=== PATIENT | female | born 2000 | race Caucasian/White ===

== ENCOUNTER 2019-03-05 11:06 | Emergency (ER) | payer MEDICAID ==
[~2019-03-05] VITALS: Ht 165.1 cm; Wt 53.5 kg
--- NOTE | 2019-03-05 11:13 | NUR ---
PT CAME INTO THE ED COMPLAINING OF SOARTHROAT X 1 WEEK, CONGESTION, FEVER, GENERALIZED BODY PAIN SINCE LAST NIGHT. PT AAOX4, VSS, BREATHING EVEN AND UNLABORED ON ROOM AIR. PT COONNECTED TO THE MONITOR AND POX.
[2019-03-05] MEDS ORDERED: ONDANSETRON 4 MG TAB.RAPDIS PO ONE (12:00)
[2019-03-05] MEDS ORDERED: ONDANSETRON 4 MG TAB.RAPDIS ONE (12:04)
[2019-03-05 12:07] VITALS: BP 118/81
--- NOTE | 2019-03-05 12:07 | NUR ---
Patient discharged to home in stable condition. Written and verbal after care instructions given. Patient verbalizes understanding of instruction.
== END 2019-03-05 12:08 | disposition home or self-care (01) ==
LOC: ER 11:09
DX: J02.9 Acute pharyngitis, unspecified (principal)
CPT/HCPCS: 99283; Q0162

== ENCOUNTER 2019-03-08 23:28 | Emergency (ER) | payer MEDICAID ==
[~2019-03-08] VITALS: Ht 165.1 cm; Wt 55.8 kg
--- NOTE | 2019-03-08 23:42 | NUR ---
BIBSELF WITH PARENTS. TO ER BED 3. AAOX4. NO RESP DISTRESS NOTED. AMBULATORY. C/O LOWER ABDOMINAL PAIN AND ANAL PAIN. PT REPORTS THAT PAIN STARTED YESTERDAY. RATES HER PAIN 8/10. LOWER ABD PAIN IS SHARP. ANAL PAIN IS ALSO REPORTED SHARP AND HARD TO SIT D/T PAIN. AWAITING MD FOR EVAL.
--- NOTE | 2019-03-08 23:55 | NUR ---
WAS AT BEDSIDE FOR EVAL. URINE COLECTED AND SENT TO STAT LAB
[2019-03-09 00:05] LABS: APPEARANCE,URINE CLEAR (CLEAR); BILIRUBIN,URINE NEGATIVE (NEGATIVE); BLOOD, URINE N Ery/uL (NEGATIVE); COLOR,URINE Light yellow (YELLOW); KETONES,URINE NEGATIVE (NEGATIVE); PH,URINE 6.5 (5.0-8.0); PROTEIN,URINE NEGATIVE (NEGATIVE); UGLUCOSE NEGATIVE (NEGATIVE)
[2019-03-09 00:06] LABS: LEUKOCYTE ESTERASE ,URINE NEGATIVE (NEGATIVE); NITRITE, URINE NEGATIVE (NEGATIVE); UROBILINOGEN,URINE 0.2 EU/dL (0.2)
--- NOTE | 2019-03-09 00:09 | NUR ---
XRAY AT BEDSIDE
[2019-03-09] MEDS ORDERED: MAGNESIUM CITRATE 296 ML BOTTLE ONE (00:27)
--- NOTE | 2019-03-09 00:31 | NUR ---
Patient discharged to home in stable condition. Written and verbal after care instructions given. Patient verbalizes understanding of instruction. Pt ambulatory with a steady gait
[2019-03-09 00:40] VITALS: BP 119/71
== END 2019-03-09 00:40 | disposition home or self-care (01) ==
LOC: ER 23:31
DX: K59.00 Constipation, unspecified (principal)
CPT/HCPCS: 74018; 81000-TC; 84703-TC

== ENCOUNTER 2020-04-27 06:46 | Emergency (ER) | payer MEDICAID, OTHER ==
[~2020-04-27] VITALS: Ht 165.1 cm; Wt 53.5 kg
[2020-04-27] MEDS ORDERED: LORAZEPAM 1 MG TABLET PO ONE (07:00)
--- NOTE | 2020-04-27 07:00 | NUR ---
BIB PARENTS FOR C/O "MY BLOOD PRESSURE IS HIGH, I CAN NOT BREATH" AND "MY LEFT HAND IS NUMB" PT APPEARS VERY ANXIOUS AND REPORTED SHE HAD PANICK ATTACK IN THE PAST. AMBULATORY TO BED 12. WAS PLACED ON A MONITOR. NOTED W/ SLIGHT TACHCARDIA. WILL CONT TO MONITOR ,
[2020-04-27] MEDS ORDERED: LORAZEPAM 1 MG TABLET ONE (07:08)
[2020-04-27 07:31] LABS: BASOPHILS % (AUTO) 0.8 % (0.0-2.0); EOSINOPHILS % (AUTO) 1.3 % (0.0-6.0); HEMATOCRIT 40 % (33-45); HEMOGLOBIN 13.6 g/dL (11.5-14.8); LYMPHOCYTES # (AUTO) 1.7 /CMM (0.8-4.8); LYMPHOCYTES % (AUTO) 35.2 % (20.0-44.0); MEAN CORPUSCULAR HGB CONC 34 g/dl (31.0-36.0); MEAN CORPUSCULAR VOLUME 85 fL (82-100); MONOCYTES # (AUTO) 0.4 /CMM (0.1-1.30); MONOCYTES % (AUTO) 8.8 % (2.0-12.0); NEUTROPHILS # (AUTO) 2.6 /CMM (1.8-8.9); NEUTROPHILS % (AUTO) 53.9 % (43.0-81.0); PLATELET COUNT (AUTO) 221 /CMM (150-450); RED BLOOD CELL COUNT(AUTO) 4.72 MIL/uL (4.0-5.2); WHITE BLOOD COUNT (AUTO) 4.8 K/uL (4.3-11.0)
[2020-04-27 07:38] LABS: CALCIUM, SERUM 9.6 mg/dL (8.5-10.1); CARBON DIOXIDE 23 mmol/L (21-32); CHLORIDE 101 mmol/L (98-107); CREATININE 0.6 mg/dL (0.6-1.3); GLUCOSE 100 mg/dL (74-106); POTASSIUM 3.2 mmol/L (3.5-5.1); SODIUM SERUM 139 mmol/L (136-145); UREA NITROGEN, BLOOD 9 mg/dL (7-18)
[2020-04-27] MEDS ORDERED: POTASSIUM CHLORIDE 20 MEQ TAB.PRT.SR PO ONE ×2 (08:00→08:08)
--- NOTE | 2020-04-27 08:44 | NUR ---
IV removed. Catheter intact and site benign. Pressure and 4x4 applied to site. No bleeding noted. Patient discharged to home in stable condition. Written and verbal after care instructions given. Patient verbalizes understanding of instruction.
[2020-04-27 08:47] VITALS: BP 121/84
== END 2020-04-27 08:47 | disposition home or self-care (01) ==
LOC: ER 06:50
DX: R07.89 Other chest pain (principal); R00.0 Tachycardia, unspecified
CPT/HCPCS: 36415; 71045-TC; 80048-TC; 84484-TC; 85025-TC

== ENCOUNTER 2020-06-06 11:47 | Emergency (ER) | payer OTHER ==
[~2020-06-06] VITALS: Ht 167.6 cm; Wt 64.0 kg
[2020-06-06 11:58] VITALS: BP 137/89
--- NOTE | 2020-06-06 12:20 | NUR ---
SEEN AND EXAMINED BY .
--- NOTE | 2020-06-06 13:06 | NUR ---
Patient discharged to home in stable condition. Written and verbal after care instructions given. Patient verbalizes understanding of instruction.
== END 2020-06-06 13:07 | disposition home or self-care (01) ==
LOC: ER 11:50
DX: F41.9 Anxiety disorder, unspecified (principal)

== ENCOUNTER 2021-09-24 22:16 | Emergency (ER) | payer OTHER ==
[~2021-09-24] VITALS: Ht 165.1 cm; Wt 59.0 kg
[2021-09-24] MEDS ORDERED: clonazePAM 1 MG TABLET PO ONE (23:30)
[2021-09-24] MEDS ORDERED: CLON1TAB12 PO (23:31)
[2021-09-24] MEDS ORDERED: clonazePAM 1 MG TABLET ONE (23:36)
--- NOTE | 2021-09-24 23:36 | NUR ---
Patient discharged to home in stable condition. Written and verbal after care instructions given. Patient verbalizes understanding of instruction.
[2021-09-24 23:37] VITALS: BP 130/88
== END 2021-09-24 23:37 | disposition home or self-care (01) ==
LOC: ER 22:27
DX: F41.1 Generalized anxiety disorder (principal); Z79.899 Other long term (current) drug therapy

== ENCOUNTER 2022-06-02 20:33 | Emergency (ER) | payer OTHER ==
[~2022-06-02] VITALS: Ht 162.6 cm; Wt 59.0 kg
[~2022-06-02 20:33] MED LIST: CLON1TAB12 PO
--- NOTE | 2022-06-02 21:00 | NUR ---
BIBSISTER FOR ANXIETY SOB, C/P, AND EXTREMITY TINGLING HX OF PANIC DISORDER 100% IN RA, PT IS RESTLESS DURING TRIAGE. PLACED COMFORTABLY IN BED. VITALS CHECKED.
[2022-06-02] MEDS ORDERED: OLANZAPINE 5 MG TABLET ONE (21:09)
--- NOTE | 2022-06-02 21:10 | NUR ---
SEEN BY DR VERGARA AT BEDSIDE
[2022-06-02 21:13] VITALS: BP 182/82
[2022-06-02] MEDS ORDERED: OLANZAPINE ZYDIS 5 MG TAB.RAPDIS PO ONE (21:30)
[2022-06-02] MEDS ORDERED: CLON0.5T PO (21:35)
--- NOTE | 2022-06-02 21:39 | NUR ---
Patient discharged to home in stable condition. Written and verbal after care instructions given. Patient verbalizes understanding of instruction.
== END 2022-06-02 21:41 | disposition home or self-care (01) ==
LOC: ER 20:45
DX: F41.9 Anxiety disorder, unspecified (principal); E04.1 Nontoxic single thyroid nodule; Z79.899 Other long term (current) drug therapy